=== PATIENT | male | born 1980 | race African-American/Black ===

== ENCOUNTER 2017-05-13 02:15 | Emergency (ER) | payer SELFPAY ==
[~2017-05-13] VITALS: Ht 172.7 cm; Wt 71.0 kg
[2017-05-13] MEDS ORDERED: QUETIAPINE FUMARATE 25MG TABLET PO STA (04:49)
[2017-05-13 05:17] LABS: HEMATOCRIT. 39.8 % (42.0-52.0); HEMOGLOBIN. 13.5 g/dL (14.0-18.0); MEAN CORPUSCULAR HEMOGLOBIN 31.1 pg (28.0-32.0); MEAN CORPUSCULAR VOLUME 91.5 fL (80.0-94.0); MEAN PLATELET VOLUME 7.3 fl (7.4-10.4); PLATELET 292 x1000/uL (130-400); RED BLOOD CELL COUNT 4.34 mill/uL (4.7-6.1); RED CELL DISTRIBUTION WIDTH 13.7 % (11.6-14.6)
[2017-05-13 05:22] LABS: CHLORIDE 105 mEq/L (98-107); ETHANOL BLOOD < 10 mg/dL
[2017-05-13 06:55] LABS: *AMPHETAMINES SCREEN URINE NEGATIVE (NEGATIVE); *BARBITURATES SCREEN URINE NEGATIVE (NEGATIVE)
[2017-05-13 06:57] LABS: *BENZODIAZEPINES SCREEN URINE NEGATIVE (NEGATIVE); *COCAINE SCREEN URINE NEGATIVE (NEGATIVE); CANNABINOID URINE SCREEN PRESUMTIVE POSITIVE (NEGATIVE); METHADONE URINE SCREEN NEGATIVE (NEGATIVE); OPIATES URINE SCREEN NEGATIVE (NEGATIVE); PHENCYCLIDINE URINE SCREEN PRESUMTIVE POSITIVE (NEGATIVE)
[2017-05-13 10:50] VITALS: BP 107/79
[2017-05-13 11:23] LABS: ATYPICAL LYMPHOCYTES 1; PLATELET ESTIMATE NORMAL
== END 2017-05-13 12:50 | disposition home or self-care (01) ==
LOC: ER 02:20
DX: T40.991A Poisoning by other psychodysleptics [hallucinogens], accidental (unintentional), initial encounter (principal); G92 Toxic encephalopathy; F20.0 Paranoid schizophrenia; F17.200 Nicotine dependence, unspecified, uncomplicated; F12.10 Cannabis abuse, uncomplicated; F16.10 Hallucinogen abuse, uncomplicated; Y92.018 Other place in single-family (private) house as the place of occurrence of the external cause
CPT/HCPCS: 36415; 80048; 80305; 80307; 80329; 85025; 99284; G0482